=== PATIENT | female | born 1945 | race American Indian/Alaskan Native ===

== ENCOUNTER 2017-09-28 10:19 | Outpatient (CLI) | payer MEDICARE ==
--- NOTE | 2017-09-29 10:03 | Ultrasound Report ---
RIGHT UPPER QUADRANT ABDOMINAL ULTRASOUND: 09/28/17 10:19:00 CLINICAL: Abnormal lab values. FINDINGS: High-resolution ultrasound demonstrated a normal size liver with normal contour and overall echogenicity. No liver mass identified.. Normal hepatic vasculature and inferior vena cava. The gallbladder has been removed. Moderate dilatation of intrahepatic bile ducts and the common bile duct. The common bile that measures 11 mm diameter. No evidence of choledocholithiasis. The pancreatic head and proximal body are normal but the distal body and tail of the pancreas are enlarged with heterogeneous echogenicity. No pancreatic mass or fluid collection. The pancreatic duct is normal size. Normal upper abdominal aorta 1.9 cm. The right kidney is abnormally small and diffusely echogenic with cortical thinning. It measures 6.8 x 3.4 x 4.0 cm. Moderate dilatation of the renal collecting system. No renal mass or calculus identified. No ascites or mass. IMPRESSION: 1. Status post cholecystectomy with moderate dilatation of both intrahepatic and extra hepatic bile ducts. No signs of choledocholithiasis. 2. Normal liver. 3. Changes in the pancreatic body and tail suggest acute or subacute pancreatitis. No signs of pancreatic pseudocyst or mass. 4. Small right kidney with moderate hydronephrosis. The cortical thinning suggests long-standing hydronephrosis.
== END 2017-09-28 10:20 | disposition home or self-care (01) ==
LOC: SPVWC 10:19
PROVIDERS: ATTEND Internal Medicine
DX: N13.30 Unspecified hydronephrosis (principal); R79.89 Other specified abnormal findings of blood chemistry; Z90.49 Acquired absence of other specified parts of digestive tract
CPT/HCPCS: 76705